=== PATIENT | female | born 1960 | race Caucasian/White ===

== ENCOUNTER 2017-03-01 21:46 | Emergency (ER) | payer OTHER ==
[~2017-03-01] VITALS: Ht 172.7 cm; Wt 90.7 kg
[2017-03-01 22:26] LABS: URINE BILIRUBIN NEGATIVE (Negative); URINE BLOOD 1+ (Negative); URINE COLOR YELLOW; URINE GLUCOSE-RANDOM* NEGATIVE (Negative); URINE KETONES NEGATIVE (Negative); URINE PROTEIN (DIPSTICK) NEGATIVE (Negative); URINE UROBILINOGEN 0.2 E.U./dl (0.2-1.0)
[2017-03-01 22:35] LABS: URINE LEUKOCYTES-REFLEX TRACE (Negative)
[2017-03-01 22:47] LABS: SQUAMOUS >10 Many /LPF (0-3); URINE RBC 0-2 Rare /HPF (0-2); URINE WBC-REFLEX 0-5 Rare /HPF (0-5)
[2017-03-01 22:48] LABS: CASTS None Seen /LPF (None Seen); CRYSTALS None Seen /LPF (None Seen)
[2017-03-02 00:26] LABS: ABSOLUTE NEUTROPHILS 8.1 thou/uL (1.4-8.2); BASOPHILS 0.5 % (0.0-2.0); EOSINOPHILS 0.7 % (0.0-3.0); HEMATOCRIT 38.7 % (37.0-47.0); HEMOGLOBIN 13.1 gm/dL (12.0-15.0); LYMPHOCYTES 18.5 % (24.0-44.0); MCH 28.3 pg (26.0-34.0); MCHC 33.9 g/dL (28.0-37.0); MCV 83.5 fL (80.0-100.0); MONOCYTES 8.5 % (1.0-8.0); PLATELET COUNT 293 thou/uL (150-400); POLYS 71.8 % (36.0-66.0); RBC 4.64 mil/uL (4.20-5.00); RDW 14.4 % (10.5-14.5); WBC 11.2 thou/uL (4.0-11.0)
[2017-03-02 00:29] LABS: MANUAL DIFF NO
[2017-03-02 00:35] LABS: CREATININE 0.7 mg/dL (0.6-1.0); POTASSIUM 4.2 mmol/L (3.5-5.1)
[2017-03-02 00:41] LABS: ALBUMIN 3.7 g/dL (3.4-5.0); TOTAL BILIRUBIN 0.3 mg/dL (<0.1-1.0); TOTAL PROTEIN 8.3 g/dL (6.4-8.2)
[2017-03-02] MEDS ORDERED: TETRACYCLINE H500 MG PO (00:58)
[2017-03-02] MEDS ORDERED: FLAGYL 250 MG250 MG PO (00:58)
[2017-03-02] MEDS ORDERED: PEPCID20 MG PO (00:58)
[2017-03-02 01:11] VITALS: BP 171/91
== END 2017-03-02 01:16 | disposition home or self-care (01) ==
LOC: ER 21:46
PROVIDERS: Physician Assistant
DX: K59.00 Constipation, unspecified (principal); A04.8 Other specified bacterial intestinal infections; E03.9 Hypothyroidism, unspecified; Z91.14 Patient's other noncompliance with medication regimen